=== PATIENT | male | born 1985 | race Caucasian/White ===

== ENCOUNTER 2019-09-24 15:34 | Emergency (ER) | payer OTHER, SELFPAY ==
--- NOTE | ~2019-09-24 | XR_ITS ---
XR wrist RT min 3V DATE: 09/24/2019 15:50 INDICATION: Fall. Right elbow and right wrist pain. TECHNIQUE: 4 views COMPARISON: None FINDINGS: No fracture or dislocation, periosteal reaction or bone destruction. No joint space narrowi ng. No erosive change or chondrocalcinosis. IMPRESSION: Negative Reviewed, dictated and finalized at location A. NTER MACHINE IMPRESSION: Negative
--- NOTE | ~2019-09-24 | XR_ITS ---
XR forearm RT 2V DATE: 09/24/2019 15:50 INDICATION: Fall, medial pain TECHNIQUE: 2 views COMPARISON: None FINDINGS: There is a radial head fracture with approximately 1 mm depression, no displacement otherwi se. No other fracture or dislocation. IMPRESSION: Radial head fracture Reviewed, dictated and finalized at location A. ALT TAMPER IMPRESSION: Radial head fracture
[2019-09-24 15:59] VITALS: BP 149/103; PULSE 97; TEMP 36.6; O2SAT 98
--- NOTE | 2019-09-24 16:24 | ED.UPPEXIN ---
HPI - Extremity Injury (Upper) General Chief Complaint: Extremity Injury, Upper Stated Complaint: right forearm pain, post fall Time Seen by Provider: 09/24/19 16:04 Source: patient Mode of arrival: ambulatory Limitations: no limitations History of Present Illness HPI narrative: This is a 34 year old male that presents to the ER for right elbow pain after a fall last night. Reports he slipped walking into the gas station and fell onto his right wrist and elbow. Reports since he has had pain in the right elbow that radiates down his arm. Reports pain with active ROM of the elbow. Denies hitting his head, loss of consciousness, other injuries, or numbness. Related Data Allergies Allergy/AdvReac Type Severity Reaction Status Date / Time No Known Allergies Allergy Verified 09/24/19 15:38 Review of Systems Review of Systems: Narrative: CONSTITUTIONAL: Denies fever SKIN: Denies rash MUSCULOSKELETAL: Reports joint pain, and myalgia. NEUROLOGIC: Denies numbness All systems reviewed & are unremarkable except as noted in HPI and below PMFSH Past Medical History Medical History (Updated 09/24/19 @ 16:33 by Tracy Schwartz PA-C) History of depression History of hypertension Social History Social History Gender identity (if verbalized by the patient): Male Exam Narrative: Exam Narrative: GENERAL: Well-appearing, well-nourished, and in no acute distress. HEAD: Normocephalic, atraumatic. EYES: EOMI. EXTREMITIES: Normal range of motion. Pain with active ROM of the right elbow. No edema or obvious deformity. Normal sensation. Normal radial pulses SKIN: Warm, dry, no rash. NEURO: No focal deficits. Alert and oriented x3. PSYCH: Normal mood and affect Course Vital Signs Vital signs: Vital Signs Temperature 97.9 F 09/24/19 15:59 Pulse Rate 97 09/24/19 15:59 Blood Pressure 149/103 H 09/24/19 15:59 Pulse Oximetry 98 09/24/19 15:59 Temperature 97.9 F 09/24/19 15:59 Pulse Rate 97 09/24/19 15:59 Blood Pressure 149/103 H 09/24/19 15:59 Pulse Oximetry 98 09/24/19 15:59 Procedures Orthopedic Splinting/Casting Injury #1: Splinting/Casting Date: 09/24/19 Splinting/Casting Time: 16:31 Side: right Upper Extremity Injury Location: elbow Upper Extremity Immobilizer: posterior splint Splint: customized in ED OCL: long arm Pre-Procedure Neuro Vascular Exam: normal Post-Procedure Neuro Vascular Exam: normal MDM - Extremity Injury (Upper) MDM Narrative Medical decision making narrative: Patient presents the emergency department for right elbow and forearm pain after an injury last night. Right forearm x-ray shows a radial head fracture. Right wrist x-rays without acute changes. Patient was updated on case findings. He was placed in a splint. He will be given follow-up with orthopedics. He was given warnings to return to the ER Imaging Data Radiologist's impression: ITS Impressions Forearm X-Ray 09/24/19 15:52 IMPRESSION: Radial head fracture Wrist X-Ray 09/24/19 15:54 IMPRESSION: Negative Critical Care Time Critical Care Time Critical Care Time: No Discharge Plan Discharge Clinical Impression: Closed nondisplaced fracture of head of right radius Qualifiers: Encounter type: initial encounter Qualified Code(s): S52.124A - Nondisplaced fracture of head of right radius, initial encounter for closed fracture Patient Disposition: Home, Self-Care Condition: Stable Instructions: Elbow Fracture (ED) Additional Instructions: Return to the emergency department if you experience fever, redness and swelling of your arm, or any other symptoms that are concerning to you Rest. Ice. Elevate. Pain medication as needed Follow-up with orthopedics. Call to make an appointment Prescriptions: New hydrocodone-acetaminophen 5-325 mg tablet 1 tablet PO Q8H PRN (Reason: pain) Qty: 20 RF: 0 Follow-up
== END 2019-09-24 17:14 | disposition home or self-care (01) ==
PROVIDERS: Emergency Provider Emergency Medicine
DX: S52.124A Nondisplaced fracture of head of right radius, initial encounter for closed fracture (principal); I10 Essential (primary) hypertension; W01.0XXA Fall on same level from slipping, tripping and stumbling without subsequent striking against object, initial encounter
CPT/HCPCS: 29105; 73090; 73110; 99284; A4565

== ENCOUNTER 2020-11-03 13:30 | Emergency (ER) | payer OTHER, SELFPAY ==
--- NOTE | 2020-11-03 13:48 | ED.HA ---
HPI - Headache General Chief Complaint: Headache Stated Complaint: Headache,Nausea Time Seen by Provider: 11/03/20 13:48 Source: patient and RN notes reviewed Mode of arrival: ambulatory Limitations: no limitations History of Present Illness HPI Narrative: 35-year-old male presents to the [facility] with complaints of a headache that started while he was at work. Patient reports that he started a new job at [employer] a week ago and works till 1 AM to 11 AM shift. Developed a headache in the temporal areas and left work early. Went home ate something and took a nap. felt better but came to the [facility] wanted to make sure that he is not going to come down with anything. Denies headache on exam. Denies blurry vision or change in vision. No neuro deficits noted. Walks with a normal gait. Related Data Allergies Allergy/AdvReac Type Severity Reaction Status Date / Time No Known Allergies Allergy Verified 09/25/19 15:30 Review of Systems Review of Systems: Narrative: CONSTITUTIONAL: Denies fever, chills, or sweats. EYES: Denies visual changes, redness, or discharge. ENT: Denies rhinorrhea, congestion, sore throat, or otalgia. CARDIOVASCULAR: Denies chest pain, palpitations, or edema. RESPIRATORY: Denies cough or dyspnea. GASTROINTESTINAL: Denies abdominal pain, nausea, vomiting, or diarrhea. GENITOURINARY: Denies dysuria or hematuria. SKIN: Denies rash or itching. MUSCULOSKELETAL: Denies back pain, joint pain, or myalgia. NEUROLOGIC: Reports headache without numbness, or weakness. PSYCHIATRIC: Denies anxiety or depression. All other systems reviewed are negative, except as documented in HPI. [facility] Past Medical History Medical History (Updated 11/03/20 @ 13:56 by Karolina Childers) Alcoholism Anxiety Asthma Dizziness Headache History of depression History of hypertension Seasonal allergies Shortness of breath Vision abnormalities Family History Family History Other Heart disease Hypertension Social History Social History Smoking packs per day: 1 Smoking cigarettes per day: 20.0 Years smoked: 6 Smoking pack-years: 6.00 Smoking status: Current every day smoker Alcohol intake: current Gender identity (if verbalized by the patient): Male Comments At the time of my signature, I reviewed and agree with the nursing past medical, surgical, social, and family history. There is no relevant family history pertinent to the patient complaint. Exam Narrative: Exam Narrative: GENERAL: This is a well-nourished, well-developed patient, in no apparent distress. HEAD: normocephalic, atraumatic. EYES: PERRL. Sclera clear/white. Vision is grossly intact. EARS: External ears normal, auditory canals clear and without drainage, TMs normal without perforation. Hearing grossly intact. NOSE: External nose normal with no obvious nasal discharge, nares without redness, no rhinorrhea. THROAT: Mucous membranes moist, posterior pharynx clear. NECK: Neck supple, non-tender without lymphadenopathy, masses or thyromegaly. No meningeal symptoms CARDIOVASCULAR: Regular rate and rhythm without murmurs, gallops, or rubs. RESPIRATORY: Clear to auscultation. Breath sounds equal bilaterally. No wheezes, rales, or rhonchi. GASTROINTESTINAL: Abdomen soft, non-tender, nondistended. Bowel sounds are active. No hepato-splenomegaly, or palpable masses. No guarding. SKIN: warm, intact with no suspicious lesions or rash, good texture and turgor. NEURO: awake, alert, and oriented to person, place and time. There were no obvious focal neurologic abnormalities. EXTREMITIES: No joint tenderness, effusion, or edema noted. No calf tenderness. Negative Homans sign bilaterally. BACK: Nontender without deformity. No CVA tenderness. Course Vital Signs Vital signs: Vital Signs Temperature 97.5 F L 11/03/20 13:49 Pulse Rate 96 11/03/20 13:49 Respir
[2020-11-03 13:49] VITALS: BP 148/92; PULSE 96; RESP 18; TEMP 36.4; O2SAT 99
== END 2020-11-03 13:59 | disposition home or self-care (01) ==
PROVIDERS: Emergency Provider Nurse Practitioner
DX: F17.210 Nicotine dependence, cigarettes, uncomplicated (principal); J45.909 Unspecified asthma, uncomplicated; I10 Essential (primary) hypertension; G44.209 Tension-type headache, unspecified, not intractable
CPT/HCPCS: 99211; G0463

== ENCOUNTER 2022-02-07 11:56 | Emergency (ER) | payer OTHER, SELFPAY ==
[2022-02-07 12:04] VITALS: BP 152/101; PULSE 86; RESP 16; TEMP 36.9; O2SAT 100
--- NOTE | 2022-02-07 12:17 | ED.GENADULT ---
HPI - General Adult General Chief complaint: Nausea/Vomiting/Diarrhea Stated complaint: dehydrated,vomiting,shortness of breath History of Present Illness HPI narrative: Patient is a 37-year-old male who presents to the [facility] via [facility] for evaluation of shortness of breath that began early this morning on his drive to work. He is accompanied by his spouse. He also reports paresthesias in bilateral upper and lower extremities. He also reports vomiting once. History of hypertension. Denies taking antihypertensives as recommended by previous provider per spouse report. Related Data Allergies Allergy/AdvReac Type Severity Reaction Status Date / Time No Known Allergies Allergy Verified 09/25/19 15:30 Review of Systems Review of Systems: Denies fever, chills, sweats, change in appetite, poor p.o. intake, LOC, dizziness, wheezing, cough, diarrhea, abdominal pain, cyanosis, chest pain, and heart palpitations PMFSH Past Medical History Medical History Alcoholism Anxiety Asthma Dizziness Headache History of depression History of hypertension Seasonal allergies Shortness of breath Vision abnormalities Family History Family History Other Heart disease Hypertension Social History Social History Smoking packs per day: 1 Smoking cigarettes per day: 20.0 Years smoked: 6 Smoking pack-years: 6.00 Smoking status: Current every day smoker Alcohol intake: current Alcohol use details: Occasional Gender identity (if verbalized by the patient): Male Comments I have reviewed and agree with the patient's past medical, surgical, social, and family hx as documented by the RN. There is no relevant family history pertinent to the presenting complaint. Exam Narrative: GENERAL: Well-appearing, well-nourished, and in no acute distress. HEAD: Normocephalic, atraumatic. No sinus tenderness or facial swelling appreciated. EYES: PERRLA and EOMI. No evidence of erythema, swelling, or drainage. ENT: Bilateral external ears and ear canals normal. Bilateral TMs are normal.No TM perforation. Nares clear, no rhinorrhea or epistaxis. Bilateral turbinates without erythema/ swelling. Mucous membranes moist and pink. Uvula is midline without erythema and swelling. No evidence of petechial rash, cobblestoning, lesions, ulcers, erythema, swelling, exudates, peritonsillar abscess, tenting, or drooling. Breath odor and voice normal. NECK: Supple. No Lymphadenopathy or nuchal rigidity appreciated. CHEST: Bilateral lung golden are clear to auscultation. No respiratory distress. No evidence of cough or pleuritic cp upon examination. HEART: Regular rate and rhythm. No murmur, gallop, or rub heard. EXTREMITIES: Normal range of motion. No edema. SKIN: Warm, dry, no rash. NEURO: No focal deficits. Alert and oriented x3. Course Course Level of Care: Express Care Visit Vital Signs Vital signs: Vital Signs Temperature 98.5 F 02/07/22 12:04 Pulse Rate 86 02/07/22 12:04 Respiratory Rate 16 02/07/22 12:04 Blood Pressure 152/101 H 02/07/22 12:04 Pulse Oximetry 100 02/07/22 12:04 Temperature 98.5 F 02/07/22 12:04 Pulse Rate 86 02/07/22 12:04 Respiratory Rate 16 02/07/22 12:04 Blood Pressure 152/101 H 02/07/22 12:04 Pulse Oximetry 100 02/07/22 12:04 Transfer Transfer rationale: r/o dehydration--pt request Accepting physician: Dr. Givens Transfer comments: All questions answered. Patient stable at time of transfer Medical Decision Making Differential Diagnosis Differential Diagnosis: Gastroenteritis, asthma exacerbation, COVID-19, influenza, dehydration Vital Signs Vital Signs: Vital Signs Temperature 98.5 F 02/07/22 12:04 Pulse Rate 86 02/07/22 12:04 Respiratory Rate 16 02/07/22 12:04
== END 2022-02-07 12:34 | disposition short-term general hospital (02) ==
PROVIDERS: Emergency Provider Nurse Practitioner Family
DX: R11.2 Nausea with vomiting, unspecified (principal); F17.210 Nicotine dependence, cigarettes, uncomplicated; J45.909 Unspecified asthma, uncomplicated; I10 Essential (primary) hypertension
CPT/HCPCS: 99212; G0463

== ENCOUNTER 2022-02-07 12:54 | Emergency (ER) | payer OTHER, SELFPAY ==
[2022-02-07] VITALS (17 sets, daily range): BP systolic 136–151; BP diastolic 98–109; PULSE 63–84; RESP 11–25; TEMP 36.1–36.6; O2SAT 96–100
--- NOTE | ~2022-02-07 | XR_ITS ---
EXAMINATION: XR chest 2V DATE: 02/07/2022 13:19 INDICATION: Shortness of breath TECHNIQUE: PA and lateral views of the chest are obtained. COMPARISON: 12/24/2011 FINDINGS: The lungs are free of acute opacities. There is no pleural effusion or pneumothorax. The ca rdiomediastinal silhouette is normal. There is mild thoracic spondylosis. A chronic compression fract ure of the L1 vertebral body is noted. IMPRESSION: 1. No acute cardiopulmonary abnormality. Reviewed, dictated and finalized at location A.
--- NOTE | 2022-02-07 12:59 | ECG_ITS ---
Measurements Intervals [place] Rate: 78 P: 23 MS: 170 QRS: 10 QRSD: 109 T: 32 QT: 373 QTc: 427 Interpretive Statements SINUS RHYTHM INCOMPLETE RIGHT BUNDLE BRANCH BLOCK [90+ ms QRS DURATION, TERMINAL R IN V1/V2, 40+ ms S IN I/aVL/V4/V5/V6] BORDERLINE ECG NO PREVIOUS ECG AVAILABLE FOR COMPARISON Electronically Signed On 02-08-2022 7:06:58 CDT by Dennis Patel M.D.
[2022-02-07 13:12] LABS: Basophils Absolute Auto 0.1 K/mm3 (0.0-0.1); Basophils Percent Auto 0.7 % (0.2-1.2); Eosinophils Absolute Auto 0.1 K/mm3 (0-0.3); Eosinophils Percent Auto 0.7 % (0-4.4); Hemoglobin 15.8 g/dL (14.0-18.0); Immature Granulocyte Absolute 0.04 K/mm3 (0.00-0.031); Immature Granulocyte Percent A 0.5 % (0-0.5); Lymphocytes Absolute Auto 1.71 K/mm3 (0.9-3.2); Lymphocytes Percent Auto 20.6 % (18.3-44.2); Mean Corpuscular HGB Conc 35.1 g/dl (32-36); Mean Corpuscular Hemoglobin 30.9 pg (26-34); Mean Corpuscular Volume 88.1 fl (80-100); Mean Platelet Volume 8.7 fl (7.4-10.4); Monocytes Absolute Auto 0.6 K/mm3 (0.1-0.6); Monocytes Percent Auto 6.6 % (2.6-8.5); Neutrophils Absolute Auto 5.9 K/mm3 (1.3-6.7); Neutrophils Percent Auto 70.9 % (45.5-73.1); Platelet Count Result 315 k/mm3 (150-375); Red Blood Count 5.11 M/mm3 (4.6-6.20); Red Cell Distribution Width 11.9 % (11.5-14.5); White Blood Count 8.3 K/mm3 (4.5-10.0)
--- NOTE | 2022-02-07 13:13 | ED.GENADULT ---
HPI - General Adult General Chief complaint: Shortness of Breath/Dyspnea Stated complaint: shortness of breath and vomiting Time Seen by Provider: 02/07/22 13:06 Source: RN notes reviewed History of Present Illness HPI narrative: Patient presents emergency department from urgent care for multiple symptoms. The patient states he is driving to work today when he began to feel short of breath he states he felt he could not catch his breath he states that following this he began to have numbness and tingling in his hands and in his feet bilaterally he states he then experienced several episodes of nausea and vomiting. He states he is feeling better at this time but feels dehydrated he denies any fevers or chills chest pain abdominal pain diarrhea or any other symptoms. Patient states he does smoke cigarettes Related Data Allergies Allergy/AdvReac Type Severity Reaction Status Date / Time No Known Allergies Allergy Verified 09/25/19 15:30 Review of Systems Review of Systems: Gen.: Denies fevers or chills Eyes: Denies eye pain or visual change ENT: Denies congestion Respiratory: Reports shortness of breath denies cough CV: Denies chest pain or palpitations GI: Denies abdominal pain or diarrhea reports nausea vomiting Musculoskeletal: Denies back pain or muscle pain Neuro: Denies numbness, tingling, weakness or focal weakness Skin: Denies rash Except as documented, all other systems reviewed and negative [facility] Past Medical History Medical History Alcoholism Anxiety Asthma Dizziness Headache History of depression History of hypertension Seasonal allergies Shortness of breath Vision abnormalities Family History Family History Other Heart disease Hypertension Social History Social History Smoking packs per day: 1 Smoking cigarettes per day: 20.0 Years smoked: 6 Smoking pack-years: 6.00 Smoking status: Current every day smoker Alcohol intake: current Alcohol use details: Occasional Gender identity (if verbalized by the patient): Male Exam Narrative: APPEARANCE: No acute distress, nontoxic, resting in bed EYES: EOMI HEENT: Normocephalic, atraumatic, OMM RESPIRATORY: No respiratory distress Clear to auscultation bilaterally with no rhonchi wheezing or rales. CARDIOVASCULAR: Regular rate and rhythm without murmurs rubs or gallops. ABDOMINAL: Soft, nontender, nondistended, no rebound or guarding MUSCULOSKELETAl: Moves all extremities. No clubbing, cyanosis or edema. NEURO: Awake and alert. Following commands, speech normal, no focal deficits SKIN:: Warm, dry. No rashes lesions or abrasions PSYCHIATRIC: Normal affect/mood, Course Course Emergency Course: Patient states he is feeling better this time. Discussed the patient's blood pressure he has been diagnosed with hypertension before in the past is not currently on any medication does not have a PCP discussed with patient I will refer him for PCP follow-up with the on-call physician discussed he does need to follow-up next week for repeat blood pressure check Discussed with patient results of workup and diagnosis. Discussed need for follow-up with primary care, proper use of medication, and reasons to return to the emergency department. Patient understands and agrees to current treatment plan Vital Signs Vital signs: Vital Signs Temperature 97.0 F L 02/07/22 12:55 Pulse Rate 80 02/07/22 12:55 Respiratory Rate 16 02/07/22 12:55 Blood Pressure 151/109 H 02/07/22 12:55 Pulse Oximetry 100 02/07/22 12:55 Oxygen Delivery Room Air 02/07/22 12:55 Temperature 97.9 F 02/07/22 14:31 Pulse Rate 73 02/07/22 14:31 Respiratory Rate 15 02/07/22 14:31 Blood Pressure 147/98 H 02/07/22 14:31 Pulse Oximetry 98 02/07/22 14:31 Oxygen Delivery Room Air 02/07/22
[2022-02-07 13:21] LABS: Alanine Aminotransferase 58 U/L (6-50); Alkaline Phosphatase 90 U/L (38-126); Anion Gap 11 mmol/L (8-16); Aspartate Amino Transferase 31 U/L (17-59); Blood Urea Nitrogen 15 mg/dL (9-20); Calcium 9.5 mg/dL (8.4-10.2); Carbon Dioxide 22 mmol/L (22-30); Chloride 105 mmol/L (98-107); Estimated CRCL calculation 98 ml/min; Estimated Glomerular Filt Rate > 60; Glucose 103 mg/dL (65-110); Potassium 3.4 mmol/L (3.4-5.0); Sodium 138 mmol/L (137-145)
[2022-02-07 13:26] LABS: Prothrombin Time 12.6 Seconds (11.1-14.7)
[2022-02-07 13:27] LABS: Partial Thromboplastin Time 24.2 SECONDS (22.3-36.8)
[2022-02-07 13:40] LABS: Creatine Kinase 107 U/L (55-170); Lipase 107 U/L (23-300)
[2022-02-07] MEDS: SODIUM CHLORIDE 0.9% IV 1,000 ML 999 ML IV CONT (13:51)
[2022-02-07 13:53] LABS: Troponin I < 0.012 ng/mL (0.000-0.034)
[2022-02-07 14:01] LABS: D Dimer < 0.27 ug/mL (<0.48)
[2022-02-07 14:16] LABS: RBC Urine 0-2 /hpf (0-2); Squamous Epithelial Cell Urine Rare /hpf (Few); WBC Urine 0-3 /hpf
[2022-02-07 14:18] LABS: Add Urine Microscopic? YES; Appearance Urine Clear (Clear); Bilirubin Urine Negative (Negative); Blood Urine Negative (Negative); Color Urine Yellow (Yellow); Glucose Urine UA Negative (Negative); Ketones Urine Negative (Negative); Leukocyte Esterase Ur Negative LEU/UL (Negative); Nitrate Urine Negative (Negative); Protein Urine 1+ mg/dL (Negative); Specific Grav Ur 1.015 (1.001-1.035); Urobilinogen Urine 0.2 mg/dL (<2.0); pH Urine 8.5 (5.0-9.0)
== END 2022-02-07 15:17 | disposition home or self-care (01) ==
PROVIDERS: Emergency Medicine; Emergency Provider Emergency Medicine
DX: R06.00 Dyspnea, unspecified (principal); R11.2 Nausea with vomiting, unspecified; I10 Essential (primary) hypertension; J45.909 Unspecified asthma, uncomplicated; F17.210 Nicotine dependence, cigarettes, uncomplicated; I45.10 Unspecified right bundle-branch block
CPT/HCPCS: 36415; 71046; 80053; 81001; 82550; 83690; 84484; 85025; 85380; 85610; 85730; 93005; 99284; J7030

== ENCOUNTER → 2022-02-20 12:57 | Outpatient (CLI) | payer OTHER, SELFPAY ==
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
--- NOTE | ~2022-02-20 | XR_ITS ---
XR hip RT 2V w AP pelvis 02/20/2022 13:37 Indication: Right hip pain for 6 months Procedure: 3 views right hip Comparison: No prior studies for comparison. Findings: No fracture, subluxation or dislocation. There is anatomic alignment. Sacral foramen are symmetric. Pelvic rings are intact. No significant de generative change of the hips. Impression: 1: No significant bone or joint abnormality. Reviewed, dictated and finalized at location A. Impression: 1: No significant bone or joint abnormality.
--- NOTE | ~2022-02-20 | XR_ITS ---
XR shoulder LT min 2V DATE: 02/20/2022 13:36 INDICATION: Left posterior shoulder pain for one week. No injury. TECHNIQUE: 5 views COMPARISON: None FINDINGS: No fracture or dislocation, periosteal reaction or bone destruction or abnormal soft tissue calcification. IMPRESSION: Negative Reviewed, dictated and finalized at location A. IMPRESSION: Negative
== END ==
PROVIDERS: PCP Emergency Medicine; Visit Provider Emergency Medicine
DX: M25.551 Pain in right hip (principal); M54.50 Low back pain, unspecified; M85.88 Other specified disorders of bone density and structure, other site; M51.36 Other intervertebral disc degeneration, lumbar region; S32.011D Stable burst fracture of first lumbar vertebra, subsequent encounter for fracture with routine healing; X58.XXXD Exposure to other specified factors, subsequent encounter
CPT/HCPCS: 72110; 73030; 73502

== ENCOUNTER 2022-06-27 15:31 | Emergency (ER) | payer OTHER, SELFPAY ==
[2022-06-27 15:57] VITALS: BP 156/90; PULSE 76; RESP 16; TEMP 36.8; O2SAT 100
--- NOTE | 2022-06-27 16:09 | ED.WOUNDLAC ---
HPI - Wound/Laceration General Chief Complaint: Wound/Laceration Stated Complaint: laceration History of Present Illness HPI narrative: 37-year-old male presents emergency room for evaluation of multiple lacerations to his right hand. 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 Sustained lacerations to his second and third fingers on his left hand. Tetanus is not up-to-date. Related Data Allergies Allergy/AdvReac Type Severity Reaction Status Date / Time No Known Allergies Allergy Verified 09/25/19 15:30 Review of Systems Review of Systems: CONSTITUTIONAL: Denies fever, chills, or sweats. EYES: Denies visual changes, redness, or discharge. ENT: Denies rhinorrhea, congestion, sore throat, or otalgia. CARDIOVASCULAR: Denies chest pain, palpitations, or edema. RESPIRATORY: Denies cough or dyspnea. GASTROINTESTINAL: Denies abdominal pain, nausea, vomiting, or diarrhea. GENITOURINARY: Denies dysuria or hematuria. SKIN: Denies rash or itching. MUSCULOSKELETAL: Denies back pain, joint pain, or myalgia. NEUROLOGIC: Denies headache, numbness, dizziness, or weakness. PSYCHIATRIC: Denies anxiety or depression. [facility] Past Medical History Medical History Alcoholism Anxiety Asthma Dizziness Headache History of depression History of hypertension Seasonal allergies Shortness of breath Vision abnormalities Family History Family History Other Heart disease Hypertension Social History Social History Smoking packs per day: 1 Smoking cigarettes per day: 20.0 Years smoked: 6 Smoking pack-years: 6.00 Smoking status: Current every day smoker Alcohol intake: current Alcohol use details: Occasional Gender identity (if verbalized by the patient): Male Exam Narrative: GENERAL: Well-appearing, well-nourished, no physical limitations, and in no acute distress. HEAD: Normocephalic, atraumatic. EYES: Conjunctivae normal, PERRLA and EOMI. CHEST: Clear to auscultation. No respiratory distress. No wheezes rales or rhonchi. HEART: Regular rate and rhythm. No murmur heard. Normal peripheral pulses. EXTREMITIES: Normal range of motion. No edema. No clubbing or cyanosis SKIN: Superficial laceration to the finger pads of the left index and middle finger. NEURO: No focal deficits. Alert and oriented x3. MAEW. CN's II-XI intact bilaterally, normal gait PSYCH: Cooperative. Normal mood and affect. Course Vital Signs Vital signs: Vital Signs Temperature 36.8 C 06/27/22 15:57 Pulse Rate 76 06/27/22 15:57 Respiratory Rate 16 06/27/22 15:57 Blood Pressure 156/90 H 06/27/22 15:57 Pulse Oximetry 100 06/27/22 15:57 Oxygen Delivery Room Air 06/27/22 15:57 Temperature 36.8 C 06/27/22 15:57 Pulse Rate 76 06/27/22 15:57 Respiratory Rate 16 06/27/22 15:57 Blood Pressure 156/90 H 06/27/22 15:57 Pulse Oximetry 100 06/27/22 15:57 Oxygen Delivery Room Air 06/27/22 15:57 Discharge Plan Discharge Clinical Impression: Laceration Patient Disposition: Home, Self-Care Condition: Stable Instructions: Antibiotic Form Additional Instructions: Keep wounds clean and dry and covered. Follow-up/Referrals: Carlito Santizo MD [Primary Care Provider] - Time of Disposition: 16:11
[2022-06-27] MEDS: TETANUS,DIPHTHERIA,AC PERTUSSIS ADULT (0.5 ML) BOOSTRIX IM (16:35)
== END 2022-06-27 16:43 | disposition home or self-care (01) ==
LOC: ANHED 16:20
PROVIDERS: Emergency Provider Nurse Practitioner Family; PCP Emergency Medicine
DX: S61.411A Laceration without foreign body of right hand, initial encounter (principal); I10 Essential (primary) hypertension; F17.210 Nicotine dependence, cigarettes, uncomplicated; Z23 Encounter for immunization; W26.0XXA Contact with knife, initial encounter; Y99.0 Civilian activity done for income or pay
CPT/HCPCS: 90471; 90715; 99282

== ENCOUNTER 2022-07-16 13:28 | Emergency (ER) | payer OTHER, SELFPAY ==
--- NOTE | 2022-07-16 13:29 | ED.URI ---
HPI - URI/Sore Throat General Chief Complaint: Upper Respiratory Infection Stated Complaint: Cough Time Seen by Provider: 07/16/22 13:42 Source: patient and RN notes reviewed Mode of arrival: ambulatory Limitations: no limitations History of Present Illness HPI Narrative: 37 year male presents with concern for cough sore throat headache for 4 days. Reports symptoms are improving, continues to cough that is bothersome. Denies taking any [id number] medication MD elicited complaint: cough and sore throat Related Data Home Medications Medication Instructions Recorded Confirmed omeprazole 20 mg capsule,delayed 20 mg DAILY 07/16/22 07/16/22 release Allergies Allergy/AdvReac Type Severity Reaction Status Date / Time No Known Allergies Allergy Verified 07/16/22 13:41 Review of Systems Review of Systems: CONSTITUTIONAL: Reports malaise. Denies chills, sweats, or fever. EYES: Denies visual changes, redness, or discharge. ENT: Reports rhinorrhea, congestion, sore throat. Denies sinus pain, otalgia CARDIOVASCULAR: Denies chest pain, palpitations, or edema. RESPIRATORY: Reports cough. Denies dyspnea. GASTROINTESTINAL: Denies abdominal pain, nausea, vomiting, diarrhea SKIN: Denies rash or itching. MUSCULOSKELETAL: Denies myalgia. NEUROLOGIC: Reports headache. All systems reviewed & are unremarkable except as noted in HPI and below PMFSH Past Medical History Medical History Alcoholism Anxiety Asthma Dizziness Headache History of depression History of hypertension Seasonal allergies Shortness of breath Vision abnormalities Family History Family History Other Heart disease Hypertension Social History Social History Smoking packs per day: 1 Smoking cigarettes per day: 20.0 Years smoked: 6 Smoking pack-years: 6.00 Smoking status: Current every day smoker Alcohol intake: current Alcohol use details: Occasional Gender identity (if verbalized by the patient): Male Comments At time of signature, agree with nursing past medical, surgical, social and family history. There is no relevant family history pertinent to the presenting complaint Exam Narrative: GENERAL: Well-appearing, well-nourished, and in no acute distress. HEAD: Normocephalic EYES: PERRLA, conjunctivae clear ENT: Nares clear, turbinates edematous and erythematous, clear discharge. Mucous membranes moist. TM pearly pablo with dull light reflex bilaterally; no tragal tenderness. Oropharynx not erythematous without lesions. Tonsils not enlarged and without exudate, no drooling, no hoarseness, no trismus, uvula midline. NECK: Supple. No lymphadenopathy CHEST: Clear to auscultation, breath sounds equal. No wheezing, rhonchi, rales, or stridor. No respiratory distress, speaks in full sentences. Cough noted HEART: Regular rate and rhythm. No murmur heard. SKIN: Warm, dry, no rash. NEURO: Alert and oriented x3. PSYCH: Normal mood and affect Course Course Emergency Course: Patient is aware of diagnosis, understands and agrees to treatment plan. Anticipatory guidance given. Patient agrees to follow-up as directed and is aware of reasons to seek care at the emergency department. Portions of this record may have been created with voice recognition software Level of Care: Express Care Visit Vital Signs Vital signs: Reviewed. MDM - URI/Sore Throat MDM Narrative Medical decision making narrative: Differential diagnosis considered: Holt virus, strep pharyngitis, allergic rhinitis, upper respiratory tract infection, sinusitis, rhinosinusitis, nasopharyngitis. viral pharyngitis, otitis media, otitis externa, pneumonia, bronchitis, viral cough syndrome, viral syndrome, and influenza. Exam findings show no acute concerns or changes; patient is non-toxic appearing and
[2022-07-16 13:35] VITALS: BP 148/93; PULSE 94; RESP 18; TEMP 36.6; O2SAT 98
== END 2022-07-16 13:51 | disposition home or self-care (01) ==
PROVIDERS: Emergency Provider Nurse Practitioner; PCP Emergency Medicine
DX: J40 Bronchitis, not specified as acute or chronic (principal); F17.210 Nicotine dependence, cigarettes, uncomplicated; J45.909 Unspecified asthma, uncomplicated; I10 Essential (primary) hypertension
CPT/HCPCS: 99213; G0463

== ENCOUNTER 2022-09-04 14:18 | Emergency (ER) | payer OTHER, SELFPAY ==
[2022-09-04 14:27] VITALS: BP 149/95; PULSE 93; RESP 20; TEMP 36.5; O2SAT 100
--- NOTE | 2022-09-04 14:45 | ED.EXTPRO ---
HPI - Extremity Problem General Chief complaint: Extremity Problem,Nontraumatic Stated complaint: left elbow pain Time Seen by Provider: 09/04/22 14:45 Source: patient and RN notes reviewed Mode of arrival: ambulatory Limitations: no limitations History of Present Illness HPI Narrative: 37-year-old male presents concern for left elbow pain without injury or trauma. Reports pain has been going on for about 1 week. He reports pain is exacerbated with bending her wrist or flexing the fingers. He denies swelling, redness, warmth, open skin, rash. 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 He reports the pain is lateral and feels superficial. MD Complaint: extremity pain Related Data Home Medications Medication Instructions Recorded Confirmed omeprazole 20 mg capsule,delayed 20 mg DAILY 07/16/22 09/04/22 release Allergies Allergy/AdvReac Type Severity Reaction Status Date / Time No Known Allergies Allergy Verified 07/16/22 13:41 Review of Systems Review of Systems: CONSTITUTIONAL: Denies malaise, chills, sweats, or fever. CARDIOVASCULAR: Denies chest pain, palpitations, or edema. RESPIRATORY: Denies cough or dyspnea. SKIN: Denies rash or itching, bruising, redness, swelling. MUSCULOSKELETAL: Reports left elbow pain NEUROLOGIC: Denies numbness, weakness All systems reviewed & are unremarkable except as noted in HPI and below PMFSH Past Medical History Medical History Alcoholism Anxiety Asthma Dizziness Headache History of depression History of hypertension Seasonal allergies Shortness of breath Vision abnormalities Family History Family History Other Heart disease Hypertension Social History Social History Smoking packs per day: 1 Smoking cigarettes per day: 20.0 Years smoked: 6 Smoking pack-years: 6.00 Smoking status: Current every day smoker Alcohol intake: current Alcohol use details: Occasional Gender identity (if verbalized by the patient): Male Comments At time of signature, agree with nursing past medical, surgical, social and family history. There is no relevant family history pertinent to the presenting complaint Exam Narrative: GENERAL: Well-appearing, well-nourished, and in no acute distress. HEAD: Normocephalic, atraumatic. EYES: PERRLA, conjunctivae clear NECK: Supple. CHEST: Speaks in full sentences. No respiratory distress. HEART: Regular rate and rhythm. Normal and equal peripheral pulses. EXTREMITIES: Left elbow, wrist, digits have normal sensation, normal range of motion. 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 No edema or ecchymosis. Normal sensation with sensitivity to light touch and pain. No point tenderness. No open wounds, no skin tenting, no devitalized tissue or atrophy, no trophic changes, no obvious deformity, alignment normal, nearby joints and structures intact. Distal pulses palpable and equal bilaterally, skin warm, dry, pink. Capillary refill less than 3 seconds. SKIN: Warm, dry, no rash. NEURO: Alert and oriented x3. PSYCH: Normal mood and affect Course Course Emergency Course: Patient is aware of diagnosis, understands and agrees to treatment plan. Anticipatory guidance given. Patient agrees to follow-up as directed and is aware of reasons to seek care at the emergency department. Portions of this record may have been created with voice recognition software Level of Care: Express Care Visit Vital Signs Vital signs: Vital Signs Temperature 97.7 F 09/04/22 14:27 Pulse Rate 93 09/04/22 14:27 Respiratory Rate 09/04/22 14:27 Blood Pressure 149/95 H 09/04/22 14:27 Pulse Oximetry 100 09/04/22 14:27 Oxygen Delivery Room Air 09/04/22 14:27 Temperature 97.7 F 09/04/22 14:27 Pulse Rate 93 09/04/22 14:27 Respiratory Rate 20 09/04/22 14:27
== END 2022-09-04 15:00 | disposition home or self-care (01) ==
PROVIDERS: Emergency Provider Nurse Practitioner; PCP Emergency Medicine
DX: M77.12 Lateral epicondylitis, left elbow (principal); I10 Essential (primary) hypertension; F17.210 Nicotine dependence, cigarettes, uncomplicated
CPT/HCPCS: 99213; G0463

== ENCOUNTER 2022-10-17 15:49 | Emergency (ER) | payer OTHER, SELFPAY ==
--- NOTE | ~2022-10-17 | XR_ITS ---
EXAMINATION: XR chest 2V DATE: 10/17/2022 16:13 INDICATION: Cough, tobacco use TECHNIQUE: PA and lateral views of the chest are obtained. COMPARISON: 02/07/2022 FINDINGS: The lungs are free of acute opacities. No pleural effusion or pneumothorax. The cardiomedia stinal silhouette is normal. There is mild thoracic spondylosis. IMPRESSION: 1. No acute cardiopulmonary abnormality. Reviewed, dictated and finalized at location F. L MOLDER
--- NOTE | 2022-10-17 15:50 | ED.URI ---
HPI - URI/Sore Throat General Chief Complaint: Upper Respiratory Infection Stated Complaint: Cough Time Seen by Provider: 10/17/22 15:50 Source: patient Mode of arrival: ambulatory Limitations: no limitations History of Present Illness HPI Narrative: Clem is a 37-year-old male patient presenting to the clinic today with complaints of a cough and vomiting that occurs a couple times a month for the last several months. He reports he is a tobacco and marijuana user. States that he will wake up in the morning and feel very congested and cough and throw up. MD elicited complaint: cough and nasal congestion Related Data Home Medications Medication Instructions Recorded Confirmed No Home Medications 10/17/22 10/17/22 Allergies Allergy/AdvReac Type Severity Reaction Status Date / Time No Known Allergies Allergy Verified 10/17/22 16:00 Review of Systems Review of Systems: Pertinent positives per HPI. Patient denies any fever, chills, rash, headache, visual changes, dizziness, shortness of breath, chest pain, palpitations, diarrhea, constipation, abdominal pain, or any urinary issues. PMFSH Past Medical History Medical History Alcoholism Anxiety Asthma Dizziness Headache History of depression History of hypertension Seasonal allergies Shortness of breath Vision abnormalities Family History Family History Other Heart disease Hypertension Social History Social History Smoking packs per day: 1 Smoking cigarettes per day: 20.0 Years smoked: 6 Smoking pack-years: 6.00 Smoking status: Current every day smoker Alcohol intake: current Alcohol use details: Occasional Gender identity (if verbalized by the patient): Male Comments At the time of my signature, I reviewed and agree with the nursing past medical, surgical, social, and family history. There is no relevant family history pertinent to the patient complaint. Exam Narrative: General: Well-developed, well nourished, in no apparent distress Head: Normocephalic, atraumatic Eyes: Pupils equally round and reactive to light bilaterally, EOM intact, sclera and conjunctive clear, no discharge, lids normal Ears: TMs intact and clear, ear canals clear, no drainage, grossly hearing normal. Nose: Nares patent, clear nasal discharge, no inflammation, no sinus tenderness. Mouth: Oral pharynx without lesions or masses, good dentition, MMM. Neck: Supple, trachea midline, no enlargement of anterior or posterior cervical nodes, no thyroid masses or goiter palpable. Cardio: Regular rate and rhythm, s1 and s2 normal, no murmur appreciated. Resp: Clear to auscultation bilaterally, no rhonchi, rales, wheezing or rubs Course Course Emergency Course: Portions of this record may have been created with voice recognition software. Level of Care: Express Care Visit Vital Signs Vital signs: Vital Signs Temperature 36.6 C 10/17/22 15:58 Pulse Rate 84 10/17/22 15:58 Respiratory Rate 12 10/17/22 15:58 Blood Pressure 146/92 H 10/17/22 15:58 Pulse Oximetry 99 10/17/22 15:58 Oxygen Delivery Room Air 10/17/22 15:58 Temperature 36.6 C 10/17/22 15:58 Pulse Rate 84 10/17/22 15:58 Respiratory Rate 12 10/17/22 15:58 Blood Pressure 146/92 H 10/17/22 15:58 Pulse Oximetry 99 10/17/22 15:58 Oxygen Delivery Room Air 10/17/22 15:58 Vital signs reviewed MDM - URI/Sore Throat MDM Narrative Medical decision making narrative: At the time of visit patient is resting comfortably on exam table. X-ray was negative for any sign acute cardiopulmonary process. I suspect patient has a smoker's cough/postnasal drip. Supportive measures were discussed with the patient he voiced understanding discharge instructions and agrees to treatment plan Di
[2022-10-17 15:58] VITALS: BP 146/92; PULSE 84; RESP 12; TEMP 36.6; O2SAT 99
== END 2022-10-17 16:34 | disposition home or self-care (01) ==
PROVIDERS: Emergency Provider Nurse Practitioner Family
DX: R09.82 Postnasal drip (principal); J41.0 Simple chronic bronchitis; F17.210 Nicotine dependence, cigarettes, uncomplicated; F12.90 Cannabis use, unspecified, uncomplicated; I10 Essential (primary) hypertension; J45.909 Unspecified asthma, uncomplicated
CPT/HCPCS: 71046; 99213; G0463

== ENCOUNTER 2023-08-31 20:18 | Emergency (ER) | payer SELFPAY ==
--- NOTE | ~2023-08-31 | XR_ITS ---
EXAMINATION: XR lumbar spine 2-3V DATE: 08/31/2023 23:45 INDICATION: Low back pain radiating down the legs. TECHNIQUE: 3 views of lumbar spine were obtained. COMPARISON: Lumbar spine radiographs 02/20/2022 FINDINGS: There is a chronic compression fracture of L1 with 2/5 loss of height and focal kyphosis. T here is severely decreased disc height at T12-L1 with interbody fusion. There are endplate osteophyte s at multiple levels. There is multilevel mild facet joint osteoarthritis. IMPRESSION: 1. Mild lumbar spondylosis. Reviewed, dictated and finalized at location E. ROOM CLERK IMPRESSION: 1. Mild lumbar spondylosis.
[2023-08-31 20:33] VITALS: BP 140/79; PULSE 107; RESP 20; TEMP 37.1; O2SAT 99
[2023-08-31 23:45] VITALS: BP 154/94; PULSE 78; RESP 15; O2SAT 97
[2023-08-31] MEDS: ACETAMINOPHEN 500 MG TABLET 1000 MG PO (23:45)
[2023-08-31] MEDS: methylPREDNISolone SOD SUCC 125 MG VIAL IM (23:46)
[2023-08-31] MEDS: KETOROLAC (*BKC) 60 MG/2 ML VIAL IM (23:46)
[2023-08-31] MEDS: methocarbamoL 500 MG TABLET 1000 MG PO (23:46)
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
[2023-09-01 01:44] VITALS: BP 156/93; PULSE 94; RESP 15; O2SAT 97
== END 2023-09-01 01:49 | disposition home or self-care (01) ==
PROVIDERS: Emergency Provider Physician Assistant
DX: S39.012A Strain of muscle, fascia and tendon of lower back, initial encounter (principal); I10 Essential (primary) hypertension; J45.909 Unspecified asthma, uncomplicated; F17.210 Nicotine dependence, cigarettes, uncomplicated; M47.816 Spondylosis without myelopathy or radiculopathy, lumbar region; X58.XXXA Exposure to other specified factors, initial encounter
CPT/HCPCS: 72100; 96372; 99284; A9270; J1885; J2930